=== PATIENT | female | born 1980 | race American Indian/Alaskan Native ===

== ENCOUNTER 2020-03-29 21:31 | Emergency (ER) | payer MEDICAID ==
[2020-03-29 21:58] VITALS: BP 142/70
--- NOTE | 2020-03-29 22:31 | Emergency Department Report ---
ED Female HPI - General Chief complaint: Vaginal Bleeding Stated complaint: VAGINAL BLEEDING/X2WKS Time Seen by Provider: 03/29/20 22:29 Source: patient Mode of arrival: Ambulatory Limitations: No Limitations - History of Present Illness Initial comments: 39-year-old -Citizen Of [place] female presents to the emergency room for vaginal bleeding since 03/15/2020. Patient is 7 para to 6 with 1 miscarriage. Patient states she is gone through 1 pad today. She states that she has an appointment with [facility] next Friday. She has taken nothing for her cramping. States that she just has a little bit of cramping. MD Complaint: vaginal bleeding Onset/Timin -: week(s) Location: suprapubic Severity: mild - Related Data Home Medications Medication Instructions Recorded Confirmed Last Taken No Known Home Medications [No 03/29/20 03/29/20 Unknown Reported Home Medications] Allergies Allergy/AdvReac Type Severity Reaction Status Date / Time No Known Allergies Allergy Unverified 03/29/20 21:58 ED Review of Systems ROS: Stated complaint: VAGINAL BLEEDING/X2WKS Other details as noted in HPI Comment: All other systems reviewed and negative ED Past Medical Hx - Past Medical History Previous Medical History?: No - Surgical History Past Surgical History?: No - Social History Smoking Status: Never Smoker - Medications Home Medications: Home Medications Medication Instructions Recorded Confirmed Last Taken Type No Known Home Medications [No 03/29/20 03/29/20 Unknown History Reported Home Medications] ED Physical Exam - General Limitations: No Limitations General appearance: alert, in no apparent distress - Head Head exam: Present: atraumatic, normocephalic - Eye Eye exam: Present: normal appearance - ENT ENT exam: Present: mucous membranes moist - Neck Neck exam: Present: normal inspection - Respiratory Respiratory exam: Present: normal lung sounds bilaterally. Absent: respiratory distress - Cardiovascular Cardiovascular Exam: Present: regular rate, normal rhythm. Absent: systolic murmur, diastolic murmur, rubs, gallop - GI/Abdominal GI/Abdominal exam: Present: soft, normal bowel sounds - Extremities Exam Extremities exam: Present: normal inspection - Back Exam Back exam: Present: normal inspection - Neurological Exam Neurological exam: Present: alert, oriented X3 - Psychiatric Psychiatric exam: Present: normal affect, normal mood - Skin Skin exam: Present: warm, dry, intact, normal color. Absent: rash ED Course Vital Signs 03/29/20 03/29/20 21:52 21:56 Temperature 98.4 F 98.4 F Pulse Rate 97 H 97 H Respiratory 18 18 Rate Blood Pressure 142/70 142/70 O2 Sat by Pulse 99 99 Oximetry ED Medical Decision Making - Lab Data Result diagrams: 03/29/20 22:39 - Medical Decision Making 39-year-old -Citizen Of [place] female presents to the emergency room for vaginal bleeding since 03/15/2020. Patient is 7 para to 6 with 1 miscarriage. Patient states she is gone through 1 pad today. She states that she has an appointment with [facility] next Friday. She has taken nothing for her cramping. States that she just has a little bit of cramping. We will check a CBC serum hCG and urinalysis. All labs are negative for any acute findings. I recommend to follow-up with the PUBL[facility]ING [facility] ANA[facility]. Critical care attestation.: If time is entered above; I have spent that time in minutes in the direct care of this critically ill patient, excluding procedure time. ED Disposition Clinical Impression: Dysmenorrhea Disposition: DC-01 TO HOME OR SELFCARE Is pt being admited?: No Does the pt Need Aspirin: No Condition: Stable Instructions: Dysmenorrhea, [id number] Additional Instructions: All labs are stable shows no signs of anemia no signs of infection. Recommend to follow-up with your primary care provider or [facility] provider. Referrals: [facility]IMARY [facility]ARE [Primary Care Provider] - 3-5 Days [facility] [Provider Group] - 3-5 Days Forms: Work/School Release Form(ED)
[2020-03-29 22:58] LABS: Basophils % (Auto) 0.9 % (0.0-1.8); Eosinophils # (Auto) 0.2 K/mm3 (0.0-0.4); Eosinophils % (Auto) 2.9 % (0.0-4.3); Hematocrit 35.3 % (30.3-42.9); Hemoglobin 11.7 gm/dl (10.1-14.3); Lymphocytes # (Auto) 2.2 K/mm3 (1.2-5.4); Lymphocytes % (Auto) 38.1 % (13.4-35.0); Mean Corpuscular HGB Conc 33 % (30-34); Mean Corpuscular Volume 85 fl (79-97); Monocytes # (Auto) 0.5 K/mm3 (0.0-0.8); Monocytes % (Auto) 8.2 % (0.0-7.3); Platelet Count 325 K/mm3 (140-440); Red Blood Count 4.16 M/mm3 (3.65-5.03)
[2020-03-29 23:41] LABS: Bilirubin,Urine NEG (Negative); Blood,Urine LG (Negative); Color,Urine Yellow (Yellow); Mucus,Urine 1+ /HPF; Protein,Urine <15 mg/dL mg/dL (Negative)
== END 2020-03-30 00:40 | disposition home or self-care (01) ==
LOC: ED 21:31
DX: N94.6 Dysmenorrhea, unspecified (principal)
CPT/HCPCS: 36415; 81001; 84702; 85025